=== PATIENT | female | born 1980 ===

== ENCOUNTER 2020-08-29 20:12 | Emergency (ER) | payer SELFPAY ==
--- NOTE | 2020-08-29 20:23 | Event Note ---
ED Screening Note Date of service: 08/29/20 Time: 20:22 ED Screening Note: Pt c/o sudden onset of RLQ pain x 1 hour serbian speaking +RLQ tenderness to palpation on exam This initial assessment/diagnostic orders/clinical plan/treatment(s) is/are subject to change based on patients health status, clinical progression and re- assessment by fellow clinical providers in the ED. Further treatment and workup at subsequent clinical providers discretion. Patient/guardian urged not to elope from the ED as their condition may be serious if not clinically assessed and managed. Initial orders include: labs CT
[2020-08-29] MEDS ORDERED: ONDANSETRON 4 MG/2 ML INJ IV ONE (20:54)
[2020-08-29] MEDS ORDERED: HYDROmorphone 1 MG/1 ML INJ IV ONE ×2 (20:54→22:35)
[2020-08-29] MEDS ORDERED: SODIUM CHLORIDE 0.9% 1000 ML 1,000 ML IV ONE ×2 (20:54→23:21)
--- NOTE | 2020-08-29 20:57 | Emergency Department Report ---
ED Abdominal Pain HPI - General Chief Complaint: Abdominal Pain Stated Complaint: STOMACH PAIN Time Seen by Provider: 08/29/20 20:21 Source: patient Mode of arrival: Wheelchair Limitations: Language Barrier - History of Present Illness Initial Comments: Patient is a 40-year-old female that presents emergency room with complaints of right lower quadrant pain and nausea and vomiting. Patient states her pain and symptoms started 2 hours ago. Patient states her pain is a 10 out of 10. Patient also increased urinary frequency. Patient states that the pain is better with rest. Patient states that her pain is worse with movement, palpation and vomiting. Patient denies fever and chills. Patient denies blood in her vomitus. Patient denies chest pain and shortness of breath. Patient denies dysuria. Patient states that her pain is in the right lower quadrant radiating to her right flank. Patient denies recent travel. Patient denies recent international travel. Patient denies exposure to the novel coronavirus. Patient denies sick contacts. Patient denies fever and chills. Patient denies cough. Patient denies diarrhea. Patient denies coming in contact with anybody with symptoms of the novel coronavirus. MD Complaint: abdominal pain -: Sudden Location: RLQ Radiation: R flank Migration to: no migration Severity: severe Severity scale (0 -10): 10 Quality: stabbing Consistency: constant Improves With: rest Worsens With: vomiting, movement Associated Symptoms: nausea, vomiting. denies: diarrhea, fever, chills, constipation, dysuria, hematemesis, hematochezia, melena, hematuria, syncope - Related Data LMP (females 10-50): last week Previous Rx's Medication Instructions Recorded Last Taken Type HYDROcodone/APAP 7.5-325 [[place] 1 each PO Q6HR PRN #10 tablet 08/30/20 Unknown Rx 7.5/325] Ibuprofen [Motrin 800 MG tab] 800 mg PO Q8HR PRN #30 tablet 08/30/20 Unknown Rx Ondansetron [Zofran Odt] 4 mg PO Q6HR PRN #20 tab.rapdis 08/30/20 Unknown Rx Tamsulosin [Flomax] 0.4 mg PO QDAY 10 Days #10 cap 08/30/20 Unknown Rx Allergies Allergy/AdvReac Type Severity Reaction Status Date / Time No Known Allergies Allergy Unverified 08/29/20 21:01 ED Review of Systems ROS: Stated complaint: STOMACH PAIN Other details as noted in HPI Constitutional: denies: chills, fever Eyes: denies: eye pain, eye discharge, vision change ENT: denies: ear pain, throat pain Respiratory: denies: cough, shortness of breath, wheezing Cardiovascular: denies: chest pain, palpitations Endocrine: no symptoms reported Gastrointestinal: abdominal pain, nausea, vomiting. denies: diarrhea, constipation, hematemesis, melena, hematochezia Genitourinary: denies: urgency, dysuria, discharge Musculoskeletal: denies: back pain, joint swelling, arthralgia Skin: denies: rash, lesions Neurological: denies: headache, weakness, paresthesias Psychiatric: denies: anxiety, depression Hematological/Lymphatic: denies: easy bleeding, easy bruising ED Past Medical Hx - Past Medical History Previous Medical History?: No - Surgical History Past Surgical History?: No - Family History Family history: no significant - Social History Smoking Status: Never Smoker Substance Use Type: None - Medications Home Medications: Home Medications Medication Instructions Recorded Confirmed Last Taken Type HYDROcodone/APAP 7.5-325 [[place] 1 each PO Q6HR PRN #10 tablet 08/30/20 Unknown Rx 7.5/325] Ibuprofen [Motrin 800 MG tab] 800 mg PO Q8HR PRN #30 tablet 08/30/20 Unknown Rx Ondansetron [Zofran Odt] 4 mg PO Q6HR PRN #20 tab.rapdis 08/30/20 Unknown Rx Tamsulosin [Flomax] 0.4 mg PO QDAY 10 Days #10 cap 08/30/20 Unknown Rx ED Physical Exam - General Limitations: Language Barrier General appearance: alert, in no apparent distress - Head Head exam: Present: atraumatic, normocephalic - Eye Eye exam: Present: normal appearance - ENT ENT exam: Present: mucous membranes moist - Neck Neck exam: Present: normal inspection - Respiratory Respiratory exam: Present: normal lung sounds bilaterally. Absent: respiratory distress - Cardiovascular Cardiovascular Exam: Present: regular rate, normal rhythm. Absent: systolic murmur, diastolic murmur, rubs, gallop - GI/Abdominal GI/Abdominal exam: Present: soft, tenderness (Right lower quadrant tenderness to palpation.), normal bowel sounds. Absent: distended, rebound - Extremities Exam Extremities exam: Present: normal inspection - Back Exam Back exam: Present: normal inspection - Neurological Exam Neurological exam: Present: alert, oriented X3 - Psychiatric Psychiatric exam: Present: normal affect, normal mood - Skin Skin exam: Present: warm, dry, intact, normal color. Absent: rash ED Course Vital Signs 08/29/20 20:20 Temperature 97.7 F Pulse Rate 63 Respiratory 20 Rate Blood Pressure 130/74 O2 Sat by Pulse 98 Oximetry - Reevaluation(s) Reevaluation #1: Patient states her nausea is better. Patient states the pain is better. Patient will have a CT done. 08/29/20 21:30 Reevaluation #2: Patient states her pain is returning. Patient states the pain is severe. Patient will be given Toradol and Dilaudid. 08/29/20 22:31 Reevaluation #3: Patient states she is feeling much better. Patient states her pain has resolved. I discussed all results and clinical findings with patient. I discussed plan of care with patient. Patient agrees with plan of care. Patient is stable for discharge. Patient will be discharged home. Patient given discharge instructions. Patient voiced understanding of discharge instructions. 08/30/20 00:32 ED Medical Decision Making - Lab Data Result diagrams: 08/29/20 20:27 08/29/20 20:27 - Radiology Data Radiology results: report reviewed CT ABDOMEN AND PELVIS WITH IV CONTRAST INDICATION: Acute RLQ pain. COMPARISON: None available. TECHNIQUE: All CT scans at this facility use dose modulation, automated exposure control, iterative reconstruction or weight based dosing, when appropriate, to reduce radiation dose to as low as reasonably achievable. FINDINGS: Lung Bases: No significant abnormality. Skeletal System: No acute abnormality. ABDOMEN: Liver: No significant abnormality. Gallbladder: No significant abnormality. Bile Ducts: No significant abnormality. Pancreas: No significant abnormality. Spleen: No significant abnormality. Adrenals: No significant abnormality. Right Kidney: There is mild right hydroureteronephrosis with mild right perin ephric fluid. No focal right renal lesions or calyceal stones. Left Kidney: No significant abnormality. Upper GI tract: No significant abnormality. Lymph Nodes: No significant adenopathy. Aorta: No significant abnormality. Additional Findings: No significant abnormality. PELVIS: Colon: No acute abnormality. Urinary Bladder and Distal Ureters: There is a 5 mm stone at the distal right ureter. The bladder is unremarkable. Appendix: No significant abnormality. Lymph Nodes: No significant adenopathy. Additional Findings: Uterus is somewhat heterogeneous, this could be due to the presence of a fundal fibroid. IMPRESSION: 1. 5 mm very distal right ureteral stone results in mild right hydroureteronephrosis. There is mild right perinephric fluid. No intrarenal stones. 2. Incidental findings, as above. - Medical Decision Making Patient is a 40-year-old female who presents emergency room with right lower quadrant abdominal pain rating to the right flank. Patient had labs done which were essentially unremarkable. Patient had UA which essentially markable patient had a CT scan of the abdomen to rule out acute appendicitis and other acute pathologies. Patient CT scan of the abdomen showed a renal stone in the right kidney. Patient given fluids, pain medications and antiemetics. Patient responded well to treatment. Patient they are essentially pain-free. Patient given discharge instructions. Patient is stable for discharge. - Differential Diagnosis Renal stone, appendicitis, right lower quadrant abdominal pain, flank pain, Critical care attestation.: If time is entered above; I have spent that time in minutes in the direct care of this critically ill patient, excluding procedure time. ED Disposition Clinical Impression: RLQ abdominal pain, Rt flank pain, Frequent urination, Renal stone Disposition: DC-01 TO HOME OR SELFCARE Is pt being admited?: No Does the pt Need Aspirin: No Condition: Stable Instructions: Kidney Stones, Abdominal Pain, Adult, [id number], Flank Pain, Adult, [id number], Abdominal Pain (ED) Additional Instructions: Patient to follow-up with primary care in 2 to 3 days. Patient to follow-up with urologist in 2 to 3 days. Patient to rest. Patient to increase water. Patient to avoid strenuous exercise or heavy lifting until cleared by primary care and urologist. Patient to take Tylenol or ibuprofen as needed for pain. Patient to take meds as directed. Patient to return to the ER if condition worsens, changes or new symptoms arise. Prescriptions: Tamsulosin [Flomax] 0.4 mg PO QDAY 10 Days #10 cap Ibuprofen [Motrin 800 MG tab] 800 mg PO Q8HR PRN #30 tablet PRN Reason: Pain, Moderate (4-6) HYDROcodone/APAP 7.5-325 [[place] 7.5/325] 1 each PO Q6HR PRN #10 tablet PRN Reason: Pain , Severe (7-10) Ondansetron [Zofran Odt] 4 mg PO Q6HR PRN #20 tab.rapdis PRN Reason: Nausea And Vomiting Referrals: PRIMARY CARE, [Primary Care Provider] - 2-3 Days XAVIER GORDON MD [Staff Physician] - 2-3 Days Time of Disposition: 00:35
[2020-08-29 21:04] LABS: Basophils % (Auto) 0.3 % (0.0-1.8); Eosinophils # (Auto) 0.1 K/mm3 (0.0-0.4); Eosinophils % (Auto) 0.8 % (0.0-4.3); Lymphocytes # (Auto) 2.3 K/mm3 (1.2-5.4); Lymphocytes % (Auto) 23.8 % (13.4-35.0); Mean Corpuscular HGB Conc 33 % (30-34); Mean Corpuscular Volume 83 fl (79-97); Monocytes # (Auto) 0.5 K/mm3 (0.0-0.8); Monocytes % (Auto) 5.4 % (0.0-7.3); Platelet Count 285 K/mm3 (140-440); Red Blood Count 4.36 M/mm3 (3.65-5.03)
[2020-08-29 21:10] LABS: Bilirubin,Urine NEG (Negative); Blood,Urine NEG (Negative); Color,Urine Yellow (Yellow); Protein,Urine <15 mg/dL mg/dL (Negative); Urobilinogen,Urine < 2.0 mg/dL (<2.0)
[2020-08-29 21:16] LABS: Albumin 4.5 g/dL (3.9-5); Calcium 9.2 mg/dL (8.4-10.2)
--- NOTE | 2020-08-29 22:17 | Cat Scan Report ---
CT ABDOMEN AND PELVIS WITH IV CONTRAST INDICATION: Acute RLQ pain. COMPARISON: None available. TECHNIQUE: All CT scans at this facility use dose modulation, automated exposure control, iterative reconstructi on or weight based dosing, when appropriate, to reduce radiation dose to as low as reasonably achieva ble. FINDINGS: Lung Bases: No significant abnormality. Skeletal System: No acute abnormality. ABDOMEN: Liver: No significant abnormality. Gallbladder: No significant abnormality. Bile Ducts: No significant abnormality. Pancreas: No significant abnormality. Spleen: No significant abnormality. Adrenals: No significant abnormality. Right Kidney: There is mild right hydroureteronephrosis with mild right perinephric fluid. No focal r ight renal lesions or calyceal stones. Left Kidney: No significant abnormality. Upper GI tract: No significant abnormality. Lymph Nodes: No significant adenopathy. Aorta: No significant abnormality. Additional Findings: No significant abnormality. PELVIS: Colon: No acute abnormality. Urinary Bladder and Distal Ureters: There is a 5 mm stone at the distal right ureter. The bladder is unremarkable. Appendix: No significant abnormality. Lymph Nodes: No significant adenopathy. Additional Findings: Uterus is somewhat heterogeneous, this could be due to the presence of a fundal fibroid. IMPRESSION: 1. 5 mm very distal right ureteral stone results in mild right hydroureteronephrosis. There is mild right perinephric fluid. No intrarenal stones. 2. Incidental findings, as above. Signer Name: Dayron Liu MD Signed: 08/29/2020 10:12 PM Workstation Name: [id number]
[2020-08-29] MEDS ORDERED: KETOROLAC 30 MG/1 ML INJ IV ONE (22:35)
[2020-08-30 01:32] VITALS: BP 121/69
== END 2020-08-30 01:20 | disposition home or self-care (01) ==
LOC: ED 20:12
DX: N20.0 Calculus of kidney (principal); R10.31 Right lower quadrant pain; R35.0 Frequency of micturition; Z79.899 Other long term (current) drug therapy
CPT/HCPCS: 36415; 74177; 80053; 81001; 83690; 84703; 85025; 96361; 96374; 96375; 96376; 99284; J1170; J1885; J2405; J7030; Q9967